=== PATIENT | female | born 1975 | race Asian ===

== ENCOUNTER 2017-11-15 23:34 | Emergency (ER) | payer OTHER ==
[~2017-11-15] VITALS: Ht 154.9 cm; Wt 59.5 kg
[2017-11-15 23:44] VITALS: BP 142/88
--- NOTE | 2017-11-16 01:09 | NUR ---
PATIENT AMBULATED TO ER BED 3
--- NOTE | 2017-11-16 01:10 | NUR ---
Pt presents to ED after having epigastric, left shoulder and nex pain x3 hrs at home. Pt described pressure pain and became anxious. She treats sypmtoms at home with proton pump inhibitors. Pt states upon arrival that pain is decreased to 3/10 and feels relieved being around staff. Pt denies SOB or Dyspnea, N/V. VSS. A&Ox4. ER MD aware. Continue to monitor.
[2017-11-16 03:15] VITALS: BP 131/71
--- NOTE | 2017-11-16 03:15 | NUR ---
Patient discharged with v/s stable. Written and verbal after care instructions given and explained. Patient verbalized understanding. Ambulatory with steady gait. All questions addressed prior to discharge. Advised to follow up with PMD.
== END 2017-11-16 03:15 | disposition home or self-care (01) ==
LOC: MED 23:34
DX: F41.9 Anxiety disorder, unspecified (principal); K21.9 Gastro-esophageal reflux disease without esophagitis; Z88.0 Allergy status to penicillin; Z88.2 Allergy status to sulfonamides; Z88.5 Allergy status to narcotic agent; Z88.8 Allergy status to other drugs, medicaments and biological substances
CPT/HCPCS: 99283

== ENCOUNTER 2018-04-19 09:15 | Emergency (ER) | payer OTHER ==
[~2018-04-19] VITALS: Ht 154.9 cm; Wt 54.4 kg
[2018-04-19 09:25] VITALS: BP 134/96
[2018-04-19] MEDS ORDERED: ACETAMINOPHEN EXTRA STRENGTH 500 MG TAB PO ONE (09:35)
[2018-04-19 10:29] VITALS: BP 134/96
== END 2018-04-19 10:30 | disposition home or self-care (01) ==
LOC: MED 09:15
DX: F41.9 Anxiety disorder, unspecified (principal); Z88.0 Allergy status to penicillin; Z88.6 Allergy status to analgesic agent; Z88.8 Allergy status to other drugs, medicaments and biological substances; Z79.2 Long term (current) use of antibiotics; Z79.899 Other long term (current) drug therapy
CPT/HCPCS: 99284

== ENCOUNTER 2018-09-17 13:45 | Emergency (ER) | payer OTHER ==
[~2018-09-17] VITALS: Ht 154.9 cm; Wt 61.2 kg
[2018-09-17 13:50] VITALS: BP 142/87
--- NOTE | 2018-09-17 14:06 | NUR ---
PATIENT AMB. TO BED #10
--- NOTE | 2018-09-17 14:14 | NUR ---
PATIENT PRESENTS TO ED WITH C/O HACKING PRODUCTIVE COUGH >1 WK FATIGUE, INSOMNIA, RESTLESS FULL CLEAR SPEECH WITH NO ACCESSORY MUSCLE USE NOTED .. DENIES N/V/D; SKIN IS PINK/WARM/DRY; AAOX4 WITH EVEN AND STEADY GAIT; LUNGS CLEAR BL; HR EVEN AND REGULAR; PATIENT STATES PAIN OF 0/10 AT THIS TIME; VSS; PATIENT POSITIONED FOR COMFORT; HOB ELEVATED; BEDRAILS UP X2; BED DOWN. ER MD MADE AWARE OF PT STATUS.
[2018-09-17] MEDS ORDERED: ALBUTEROL 0.083% 2.5 MG/3 ML NEBU INH ONE (14:15)
--- NOTE | 2018-09-17 14:24 | NUR ---
RT AT BEDSIDE
[2018-09-17 14:54] VITALS: BP 142/87
--- NOTE | 2018-09-17 14:55 | NUR ---
Patient discharged with v/s stable. Written and verbal after care instructions given and explained. Patient alert, oriented and verbalized understanding of instructions. Ambulatory with steady gait. All questions addressed prior to discharge. ID band removed. Patient advised to follow up with PMD. Rx of levaquin given. Patient educated on indication of medication including possible reaction and side effects. Opportunity to ask questions provided and answered.
== END 2018-09-17 14:55 | disposition home or self-care (01) ==
LOC: MED 13:45
DX: J32.9 Chronic sinusitis, unspecified (principal); J45.909 Unspecified asthma, uncomplicated; K21.9 Gastro-esophageal reflux disease without esophagitis; Z90.49 Acquired absence of other specified parts of digestive tract; Z88.0 Allergy status to penicillin; Z88.6 Allergy status to analgesic agent; Z88.1 Allergy status to other antibiotic agents; Z88.8 Allergy status to other drugs, medicaments and biological substances
CPT/HCPCS: 81002; 81025; 94640; 99283; J7613

== ENCOUNTER 2018-10-27 11:03 | Emergency (ER) | payer OTHER ==
[~2018-10-27] VITALS: Ht 154.9 cm; Wt 56.7 kg
[2018-10-27 11:12] VITALS: BP 140/88
--- NOTE | 2018-10-27 11:18 | NUR ---
DR TATE AT BEDSIDE.
--- NOTE | 2018-10-27 11:20 | NUR ---
PT. BIB SELF WITH C/O CONGESTION X 2 DAYS. PT ALSO STATES SHE IS HAVING SOME ACID REFLEX EARLIER TODAY, BURNING SENSATION. PT. STATES " I THINK ITS ANXIETY TOO I DONT KNOW". DENIES ANY PAIN, DENIES ANY SOB, DENIES ANY FEVER OR CHILLS. RR EVEN AND UNLABORED. PT. ABLE TO SPEAK IN FULL AND COMPLETE SENTENCES. LS: CLEAR BILAT. WILL CONTINUE TO MONITOR. SAFETY PRECAUTIONS IN PLACE.ER MADE AWARE.
[2018-10-27] MEDS ORDERED: ALUMINUM HYD/MAG/SIMETHICONE 30 ML UDC PO ONE (11:30)
[2018-10-27 12:40] VITALS: BP 138/82
--- NOTE | 2018-10-27 12:40 | NUR ---
Patient discharged with v/s stable. Written and verbal after care instructions given and explained. Patient alert, oriented and verbalized understanding of instructions. Ambulatory with steady gait. All questions addressed prior to discharge. ID band removed. Patient advised to follow up with PMD. Rx of MAALOX, ALBUTEROL given. Patient educated on indication of medication including possible reaction and side effects. Opportunity to ask questions provided and answered.
== END 2018-10-27 12:40 | disposition home or self-care (01) ==
LOC: MED 11:03
DX: K21.9 Gastro-esophageal reflux disease without esophagitis (principal); F41.9 Anxiety disorder, unspecified; J45.909 Unspecified asthma, uncomplicated; Z88.0 Allergy status to penicillin; Z88.2 Allergy status to sulfonamides; Z88.3 Allergy status to other anti-infective agents; Z88.6 Allergy status to analgesic agent; Z88.8 Allergy status to other drugs, medicaments and biological substances
CPT/HCPCS: 99283

== ENCOUNTER 2019-03-07 17:14 | Emergency (ER) | payer OTHER ==
[~2019-03-07] VITALS: Ht 154.9 cm; Wt 63.1 kg
[2019-03-07 17:32] VITALS: BP 127/87
--- NOTE | 2019-03-07 17:57 | NUR ---
PT TO ER BED 7
[2019-03-07] MEDS ORDERED: LEVOFLOXACIN 500 MG TAB PO ONE (18:25)
[2019-03-07] MEDS ORDERED: predniSONE 20 MG TAB PO ONE (18:25)
[2019-03-07] MEDS ORDERED: MECLIZINE 25 MG TAB PO ONE (18:25)
[2019-03-07] MEDS ORDERED: ALBUTEROL SULFATE/IPRATROPIU 3 ML SOL IH ONE (18:25)
[2019-03-07] MEDS ORDERED: FAMOTIDINE 20 MG TAB PO ONE (18:25)
--- NOTE | 2019-03-07 18:35 | NUR ---
pt bib self c/o burning urination x3 days at 02/20. pt also states that she is out of symbicort 160 for emergency asthma atacks, pantoprazole for gerd and laratadine for allergic rx. pt also has epipen that are older than 1 year. vss. er md to see pt medhx:asthma, gerd, anxiety rx:epipen, pantoprazole, laratadine, and symbicort
--- NOTE | 2019-03-07 18:38 | NUR ---
PT REFUSED HHNTX, STATED SHE DID NOT FEEL IF IT WAS NECESSARY
[2019-03-07 19:01] LABS: APPEARANCE,URINE SL CLOUDY (CLEAR); BILIRUBIN,URINE NEGATIVE (NEGATIVE); BLOOD, URINE TRACE-I (NEGATIVE); COLOR,URINE YELLOW (YELLOW); LEUKOCYTE ESTERASE ,URINE 3+ (NEGATIVE); NITRITE, URINE NEGATIVE (NEGATIVE); UGLUCOSE NEGATIVE (NEGATIVE)
[2019-03-07 19:06] LABS: RBC,URINE 0-5 /HPF (0-5); WBC,URINE TOO MANY TO COUNT /HPF (0-5)
[2019-03-07 19:07] LABS: BARBITURATE, URINE NEG. ng/ml (NEG <=200); BENZODIAZEPINE, URINE NEG. ng/mL (NEG <=200); CANNABINOID, URINE NEG. ng/mL (NEG <=50); COCAINE, URINE NEG. ng/mL (NEG <=300); OPIATE, URINE NEG. ng/mL (NEG <=2000); PHENCYCLIDINE SCREEN,URINE NEG. ng/mL (NEG <=25)
[2019-03-07 19:30] VITALS: BP 126/84
--- NOTE | 2019-03-07 19:30 | NUR ---
Patient discharged with v/s stable. Written and verbal after care instructions given and explained. Patient alert, oriented and verbalized understanding of instructions. Ambulatory with steady gait. All questions addressed prior to discharge. ID band removed. Patient advised to follow up with PMD. Rx of LEVAQUIN, CYMBICORT, ATARAX, PROTONIX, AND ALBUTEROL given. Patient educated on indication of medication including possible reaction and side effects. Opportunity to ask questions provided and answered.
== END 2019-03-07 19:30 | disposition home or self-care (01) ==
LOC: MED 17:14
DX: N30.00 Acute cystitis without hematuria (principal); K21.9 Gastro-esophageal reflux disease without esophagitis; J45.909 Unspecified asthma, uncomplicated; F41.9 Anxiety disorder, unspecified; Z88.0 Allergy status to penicillin; Z88.6 Allergy status to analgesic agent; Z88.1 Allergy status to other antibiotic agents; Z88.8 Allergy status to other drugs, medicaments and biological substances
CPT/HCPCS: 80305; 81001; 81025; 87086; 99283; J7512; 87186; J7620; J8597

== ENCOUNTER 2019-06-24 06:51 | Emergency (ER) | payer OTHER ==
[~2019-06-24] VITALS: Ht 157.5 cm; Wt 61.2 kg
[2019-06-24 06:58] VITALS: BP 145/88
--- NOTE | 2019-06-24 07:22 | NUR ---
Pt. bib self. C/O anxiety for two days, pt reports anxiety, sob, GERD reports several allergies to medications. NO facial swelling, no hives, no preuritus, voice is clear, no excess saliva, airway patent, RR even non-labored, lungs sounds clear thoughout, no signs of distress noted. No hypotension, BP at 145/88. Pt. states inhalor not working. VSS. ER MD at bedside evaluating pt. PMH, anxiety , GERD, asthma.
[2019-06-24] MEDS ORDERED: LORazepam 1 MG TAB PO ONE (07:35)
--- NOTE | 2019-06-24 07:52 | NUR ---
PT STATED SHE IS NERVOUS ABOUT TAKING ATIVAN BECAUSE OF MULTIPLE DRUG ALLERGIES, PT PLACED ON 02 AND CADIAC MONITOR, VSS AT THIS TIME.
--- NOTE | 2019-06-24 09:00 | NUR ---
PT STATES SHE FEELS DIZZY AND DROWSY FROM MEDICATION, VSS, PT TOLD SHE COULD WAIT IN [facility] UNTIL SHE IS ABLE TO GET A RIDE.
[2019-06-24 10:20] VITALS: BP 118/72
--- NOTE | 2019-06-24 10:20 | NUR ---
Patient discharged with v/s stable. Written and verbal after care instructions given and explained. Patient alert, oriented and verbalized understanding of instructions. Ambulatory with steady gait. All questions addressed prior to discharge. ID band removed. Patient advised to follow up with PMD. Rx of PANTOPRAZOLE, ZYRTEC, AND ALBUTEROL given. Patient educated on indication of medication including possible reaction and side effects. Opportunity to ask questions provided and answered.
--- NOTE | 2019-06-24 10:20 | NUR ---
PT GOING TO WAIT IN LOBBY FOR RIDE
== END 2019-06-24 10:20 | disposition home or self-care (01) ==
LOC: MED 06:51
DX: F41.9 Anxiety disorder, unspecified (principal); F41.0 Panic disorder [episodic paroxysmal anxiety]; Z76.0 Encounter for issue of repeat prescription; J45.909 Unspecified asthma, uncomplicated; K21.9 Gastro-esophageal reflux disease without esophagitis; Z79.2 Long term (current) use of antibiotics; Z79.899 Other long term (current) drug therapy; Z79.1 Long term (current) use of non-steroidal anti-inflammatories (NSAID); Z88.0 Allergy status to penicillin; Z88.6 Allergy status to analgesic agent; Z88.8 Allergy status to other drugs, medicaments and biological substances
CPT/HCPCS: 99284

== ENCOUNTER 2019-07-01 06:51 | Emergency (ER) | payer OTHER ==
[~2019-07-01] VITALS: Ht 154.9 cm; Wt 63.5 kg
[2019-07-01 06:59] VITALS: BP 140/84
[2019-07-01 07:35] VITALS: BP 128/74
== END 2019-07-01 07:34 | disposition home or self-care (01) ==
LOC: MED 06:51
DX: F41.9 Anxiety disorder, unspecified (principal); J45.909 Unspecified asthma, uncomplicated; K21.9 Gastro-esophageal reflux disease without esophagitis; Z88.0 Allergy status to penicillin; Z88.6 Allergy status to analgesic agent; Z88.2 Allergy status to sulfonamides; Z88.8 Allergy status to other drugs, medicaments and biological substances; Z88.1 Allergy status to other antibiotic agents
CPT/HCPCS: 93005; 99283

== ENCOUNTER 2019-07-17 19:28 | Emergency (ER) | payer OTHER ==
[~2019-07-17] VITALS: Ht 154.9 cm; Wt 59.0 kg
[2019-07-17 19:40] VITALS: BP 129/85
--- NOTE | 2019-07-17 19:43 | NUR ---
TO LOBBY A/W BED AMBULATORY
--- NOTE | 2019-07-17 19:45 | NUR ---
PT ARRVIED TO ED C/O DIZZINESS, LIGHTHEADEDNESS X 1830 TODAY AND COUGH X 3 DAYS. DRY COUGH. LUNG SOUNDS CLEAR ALL THROUGHTOUT. VSS. PT RATES PAIN 5/10. 2MM BRISK PERRLA. PT STATES SHE ALMOST FAINTED. DENIES ANY INJURY OR TRUAMA. PMH: ASTHMA, GERD,ANXIETY.
[2019-07-17 21:25] VITALS: BP 129/85
== END 2019-07-17 21:25 | disposition home or self-care (01) ==
LOC: MED 19:28
DX: R42 Dizziness and giddiness (principal); F43.9 Reaction to severe stress, unspecified; J45.909 Unspecified asthma, uncomplicated; K21.9 Gastro-esophageal reflux disease without esophagitis; Z79.2 Long term (current) use of antibiotics; Z79.899 Other long term (current) drug therapy; Z79.1 Long term (current) use of non-steroidal anti-inflammatories (NSAID); Z88.0 Allergy status to penicillin; Z88.6 Allergy status to analgesic agent; Z88.1 Allergy status to other antibiotic agents; F41.9 Anxiety disorder, unspecified; I10 Essential (primary) hypertension
CPT/HCPCS: 99281

== ENCOUNTER 2019-09-14 19:10 | Emergency (ER) | payer OTHER ==
[~2019-09-14] VITALS: Ht 154.9 cm; Wt 61.2 kg
[2019-09-14 19:18] VITALS: BP 143/99
--- NOTE | 2019-09-14 19:37 | NUR ---
AMBULATED TO CHAIR D
--- NOTE | 2019-09-14 19:40 | NUR ---
PATIENT ASSESSMENT COMPLETED AT THIS TIME FOR MED REFILL. PATIENT SITTING UP IN CHAIR.
[2019-09-14 20:18] VITALS: BP 143/99
--- NOTE | 2019-09-14 20:18 | NUR ---
Note isabel in EDM - 09/14/19 at 2322 by MONICA Patient discharged with v/s stable. Written and verbal after care instructions given and explained. Patient alert, oriented and verbalized understanding of instructions. Ambulatory with steady gait. All questions addressed prior to discharge. ID band removed. Patient advised to follow up with PMD. Rx of PANTOPRAZOLE, LORATADINE, SYMBICORT, VENTOLIN given. Patient educated on indication of medication including possible reaction and side effects. Opportunity to ask questions provided and answered.
== END 2019-09-14 20:18 | disposition home or self-care (01) ==
LOC: MED 19:10
DX: J30.2 Other seasonal allergic rhinitis (principal); L29.9 Pruritus, unspecified; K21.9 Gastro-esophageal reflux disease without esophagitis; J45.909 Unspecified asthma, uncomplicated; Z76.0 Encounter for issue of repeat prescription; Z88.0 Allergy status to penicillin; Z88.6 Allergy status to analgesic agent; Z88.8 Allergy status to other drugs, medicaments and biological substances
CPT/HCPCS: 99283

== ENCOUNTER 2019-09-22 14:55 | Emergency (ER) | payer OTHER ==
[~2019-09-22] VITALS: Ht 154.9 cm; Wt 61.2 kg
--- NOTE | 2019-09-22 15:00 | NUR ---
PT C/O SOB SECONDARY TO COUGHING NO FEVER, DIAGNOSE CASE OF ASTHMA WITH MEDS.SCE, CBS, AFEBRILE NICRD . AMBULATORY WITH STEADY GAIT. FEELING OF N/V. PMHX BA
[2019-09-22 15:10] VITALS: BP 128/89
--- NOTE | 2019-09-22 15:19 | NUR ---
NIYA WOOD AT BEDSIDE EVALUATING PT.
--- NOTE | 2019-09-22 15:35 | NUR ---
XRAY AT BEDSIDE.
[2019-09-22 16:53] VITALS: BP 128/89
--- NOTE | 2019-09-22 16:55 | NUR ---
Patient discharged with v/s stable. Written and verbal after care instructions given and explained regarding cough. Patient alert, oriented and verbalized understanding of instructions. Ambulatory with steady gait. All questions addressed prior to discharge. ID band removed. Patient advised to follow up with PMD. Rx of ventolin and albuterol given. Patient educated on indication of medication including possible reaction and side effects. Opportunity to ask questions provided and answered.
== END 2019-09-22 16:55 | disposition home or self-care (01) ==
LOC: MED 14:55
DX: K21.9 Gastro-esophageal reflux disease without esophagitis (principal); R05 Cough; F41.9 Anxiety disorder, unspecified; J45.909 Unspecified asthma, uncomplicated; Z88.0 Allergy status to penicillin; Z88.6 Allergy status to analgesic agent; Z88.2 Allergy status to sulfonamides; Z88.8 Allergy status to other drugs, medicaments and biological substances; Z88.1 Allergy status to other antibiotic agents
CPT/HCPCS: 71045; 99283

== ENCOUNTER 2020-07-30 09:46 | Emergency (ER) | payer OTHER ==
[~2020-07-30] VITALS: Ht 162.6 cm; Wt 65.3 kg
[2020-07-30 09:51] VITALS: BP 145/90
--- NOTE | 2020-07-30 09:55 | NUR ---
Patient ambulated to bed 6. RN evaluating patient at bedside.
--- NOTE | 2020-07-30 10:00 | NUR ---
Pt states she felt like she was going to "pass out" yesterday and then checked her blood pressure and it was out of her normal 120/80 and is concerned "there is something wrong". Denies headache. BP 140/82, HR75 AT THIS TIME. PT ALSO REPORTS SHE HAS BEEN HAVING INTERMITTENT NON-RADIATING PERCARDIAL CP WITH STABBING SENSATION FOR THE PAST 3 DAYS. DENIES DIZZINESS, N/V/D, NUMBNESS SENSATION ON NEAL UPPER EXTREMITIES. SHE ALSO STATES SHE HAS BEEN FEELING SO STRESSFUL RECENTLY. PMH: GERD, ASTHMA
--- NOTE | 2020-07-30 10:24 | NUR ---
Dr. Willoughby is evaluating the patient at bedside.
[2020-07-30 10:42] LABS: BASOPHILS # (AUTO) 0.1 K/uL (0.00-0.22); BASOPHILS % (AUTO) 0.7 % (0.0-2.0); EOSINOPHILS % (AUTO) 0.6 % (0.0-4.0); HEMATOCRIT 39.5 % (36-48); HEMOGLOBIN 13.1 g/dL (12.0-16.0); LYMPHOCYTES # (AUTO) 1.8 K/uL (2.5-16.5); MEAN CORPUSCULAR HEMOGLOBIN 29 pg (27-31); MEAN CORPUSCULAR HGB CONC 33 g/dL (33-37); MEAN CORPUSCULAR VOLUME 88.1 fL (80-94); MONOCYTES # (AUTO) 0.3 K/uL (0.8-1.0); MONOCYTES % (AUTO) 4.7 % (1.7-9.3); NEUTROPHILS # (AUTO) 5.2 K/uL (1.8-7.7); PLATELET COUNT (AUTO) 260 K/uL (140-450); RED BLOOD CELL COUNT(AUTO) 4.48 MIL/uL (4.20-5.40); RED CELL DISTRIBUTION WIDTH 14.2 % (11.6-13.7); WHITE BLOOD COUNT (AUTO) 7.4 K/uL (4.8-10.8)
[2020-07-30 10:58] LABS: ALBUMIN 3.8 g/dL (3.4-5.0); CARBON DIOXIDE 24.8 mmol/L (21-32); CREATININE 0.7 mg/dL (0.6-1.3); POTASSIUM 3.8 mmol/L (3.5-5.1); TOTAL BILIRUBIN 0.5 mg/dL (0.0-1.0)
[2020-07-30 11:43] VITALS: BP 141/81
== END 2020-07-30 11:43 | disposition home or self-care (01) ==
LOC: MED 09:46
DX: R07.2 Precordial pain (principal); F41.9 Anxiety disorder, unspecified; Z88.0 Allergy status to penicillin; Z88.5 Allergy status to narcotic agent; Z88.8 Allergy status to other drugs, medicaments and biological substances
CPT/HCPCS: 36415; 71045; 80053; 83690; 83880; 84484; 85025; 93005; 99285

== ENCOUNTER 2020-12-31 19:46 | Emergency (ER) | payer OTHER ==
[~2020-12-31] VITALS: Ht 154.9 cm; Wt 63.5 kg
[2020-12-31 19:48] VITALS: BP 145/96
--- NOTE | 2020-12-31 19:48 | NUR ---
TO BED AMBULATORY
--- NOTE | 2020-12-31 20:39 | NUR ---
ERMD AT BEDSIDE FOR MEDICAL EVALUATION.
--- NOTE | 2020-12-31 20:40 | NUR ---
pt assessment completed by CAM , no nursing interventions needed at this time.
[2020-12-31] MEDS ORDERED: ATA25 PO (21:02)
[2020-12-31] MEDS ORDERED: EPIN1KIT32 IM (21:18)
[2020-12-31 21:25] VITALS: BP 145/96
--- NOTE | 2020-12-31 21:25 | NUR ---
Patient discharged with v/s stable. Written and verbal after care instructions given and explained. Patient alert, oriented and verbalized understanding of instructions. Ambulatory with steady gait. All questions addressed prior to discharge. ID band removed. Patient advised to follow up with PMD. Rx of atarax & epi pen given. Patient educated on indication of medication including possible reaction and side effects. Opportunity to ask questions provided and answered.
== END 2020-12-31 21:25 | disposition home or self-care (01) ==
LOC: MED 19:46
DX: I10 Essential (primary) hypertension (principal); F41.9 Anxiety disorder, unspecified; G47.00 Insomnia, unspecified; J45.909 Unspecified asthma, uncomplicated; K21.9 Gastro-esophageal reflux disease without esophagitis; Z79.899 Other long term (current) drug therapy; Z88.0 Allergy status to penicillin; Z88.1 Allergy status to other antibiotic agents; Z88.2 Allergy status to sulfonamides; Z88.8 Allergy status to other drugs, medicaments and biological substances; Z88.6 Allergy status to analgesic agent
CPT/HCPCS: 99283

== ENCOUNTER 2021-11-07 13:37 | Emergency (ER) | payer OTHER ==
[~2021-11-07] VITALS: Ht 151.1 cm; Wt 68.5 kg
[~2021-11-07 13:37] MED LIST: ATA25 PO; EPIN1KIT32 IM
[2021-11-07 13:46] VITALS: BP 166/94
--- NOTE | 2021-11-07 14:25 | NUR ---
46 y/o female c/o feeling anxiety and stress due to work. Pt denies n/v/d, a&o x 4, steady gait, even and unlabored respirations at this time. Pt states 0/10 pain. pmedhx: generalized anxiety disorder allergies: penicillins, aspirin, diclofenac
[2021-11-07] MEDS ORDERED: HYDR25CA1 PO (14:27)
[2021-11-07 14:40] VITALS: BP 166/94
--- NOTE | 2021-11-07 14:40 | NUR ---
Patient discharged with v/s stable. Written and verbal after care instructions about generalized anxiety disorder given and explained. Patient alert, oriented and verbalized understanding of instructions. Ambulatory with steady gait. All questions addressed prior to discharge. ID band removed. Patient advised to follow up with PMD. Rx of vistaril given. Patient educated on indication of medication including possible reaction and side effects. Opportunity to ask questions provided and answered.
== END 2021-11-07 14:40 | disposition home or self-care (01) ==
LOC: MED 13:37
DX: F41.9 Anxiety disorder, unspecified (principal); R20.0 Anesthesia of skin; R20.2 Paresthesia of skin; J45.909 Unspecified asthma, uncomplicated; K21.9 Gastro-esophageal reflux disease without esophagitis; Z79.899 Other long term (current) drug therapy; Z88.0 Allergy status to penicillin; Z88.6 Allergy status to analgesic agent; Z88.8 Allergy status to other drugs, medicaments and biological substances; Z88.1 Allergy status to other antibiotic agents
CPT/HCPCS: 99283

== ENCOUNTER 2022-01-20 07:05 | Emergency (ER) | payer OTHER ==
[~2022-01-20] VITALS: Ht 154.9 cm; Wt 69.5 kg
[~2022-01-20 07:05] MED LIST changes: +HYDR25CA1 PO
[2022-01-20 07:13] VITALS: BP 127/93
--- NOTE | 2022-01-20 07:34 | NUR ---
TO ER BED 4
--- NOTE | 2022-01-20 07:35 | NUR ---
46 y/o female presents with localized chest pain pointing to left size, not radiating. patient describes the pain to be consistant with shortness of breath
--- NOTE | 2022-01-20 08:21 | NUR ---
XRAY AT BEDSIDE
[2022-01-20 08:23] LABS: BASOPHILS % (AUTO) 0.4 % (0.0-2.0); EOSINOPHILS # (AUTO) 0.1 K/uL (0-0.4); EOSINOPHILS % (AUTO) 1.2 % (0.0-4.0); HEMATOCRIT 39.5 % (36-48); HEMOGLOBIN 13.1 g/dL (12.0-16.0); LYMPHOCYTES # (AUTO) 1.6 K/uL (2.5-16.5); LYMPHOCYTES % (AUTO) 20.2 % (20.5-51.1); MEAN CORPUSCULAR HEMOGLOBIN 29 pg (27-31); MEAN CORPUSCULAR HGB CONC 33 g/dL (33-37); MEAN CORPUSCULAR VOLUME 88.5 fL (80-94); MONOCYTES # (AUTO) 0.5 K/uL (0.8-1.0); MONOCYTES % (AUTO) 6.3 % (1.7-9.3); NEUTROPHILS # (AUTO) 5.8 K/uL (1.8-7.7); NEUTROPHILS % (AUTO) 71.9 % (42.2-75.2); PLATELET COUNT (AUTO) 273 K/uL (140-450); RED BLOOD CELL COUNT(AUTO) 4.46 MIL/uL (4.20-5.40); RED CELL DISTRIBUTION WIDTH 14.2 % (11.6-13.7); WHITE BLOOD COUNT (AUTO) 8.1 K/uL (4.8-10.8)
[2022-01-20 08:36] LABS: ALBUMIN 3.4 g/dL (3.4-5.0); ANION GAP 11.4 (8-16); CARBON DIOXIDE 25.9 mmol/L (21-32); CREATININE 0.8 mg/dL (0.6-1.3); POTASSIUM 4.3 mmol/L (3.5-5.1); TOTAL BILIRUBIN 0.4 mg/dL (0.0-1.0)
[2022-01-20 10:48] VITALS: BP 127/93
== END 2022-01-20 10:48 | disposition home or self-care (01) ==
LOC: MED 07:05
DX: R07.9 Chest pain, unspecified (principal); F41.9 Anxiety disorder, unspecified; K21.9 Gastro-esophageal reflux disease without esophagitis; J45.909 Unspecified asthma, uncomplicated; Z88.0 Allergy status to penicillin; Z88.6 Allergy status to analgesic agent; Z88.8 Allergy status to other drugs, medicaments and biological substances; Z88.1 Allergy status to other antibiotic agents; Z79.899 Other long term (current) drug therapy; Z90.49 Acquired absence of other specified parts of digestive tract
CPT/HCPCS: 36415; 71045; 80053; 83880; 84484; 85025; 93005; 99285; Q0092

== ENCOUNTER 2022-03-17 14:31 | Emergency (ER) | payer OTHER ==
[~2022-03-17] VITALS: Ht 152.4 cm; Wt 68.2 kg
[2022-03-17 14:43] VITALS: BP 133/88
[2022-03-17] MEDS ORDERED: ACETAMINOPHEN 325 MG TAB PO ONE (14:55)
--- NOTE | 2022-03-17 18:30 | NUR ---
ATTEMPTED TO MEDICATE PT. PT IS ALLERGIC. NO MEDS PER NIYA MURPHY
--- NOTE | 2022-03-17 18:34 | NUR ---
PT UP FOR D/C BY NIYA MURPHY. NOT FOUND IN LOBBY.OUTSIDE.
--- NOTE | 2022-03-17 18:54 | NUR ---
PT RETURNED FOR PAPERS. PT NOTIFIED COVID +. EDUCATED ON COOLING MEASURES. DC PAPERS GIVEN. PT VERBALIZED UNDERSTANDING. DR GROVER/NIYA MURPHY MADE AWARE OF VITALS, PT NEVER MEDICATED.
== END 2022-03-17 18:54 | disposition home or self-care (01) ==
LOC: MED 14:31
DX: U07.1 COVID-19 (principal); J02.9 Acute pharyngitis, unspecified; R50.9 Fever, unspecified; J45.909 Unspecified asthma, uncomplicated; K21.9 Gastro-esophageal reflux disease without esophagitis; Z88.0 Allergy status to penicillin; Z88.8 Allergy status to other drugs, medicaments and biological substances; Z88.6 Allergy status to analgesic agent; Z88.2 Allergy status to sulfonamides; Z79.899 Other long term (current) drug therapy
CPT/HCPCS: 99283

== ENCOUNTER 2022-06-01 05:05 | Emergency (ER) | payer OTHER ==
[~2022-06-01] VITALS: Ht 154.9 cm; Wt 67.8 kg
[2022-06-01 05:13] VITALS: BP 130/99
--- NOTE | 2022-06-01 05:15 | NUR ---
PT TAKEN TO BED 12
--- NOTE | 2022-06-01 05:27 | NUR ---
46 Y/O FEMALE BIB SELF C/O ANIXETY, DIFFCIULTY BREATHING, DRY MOUTH AND DIFFICULTY SWALLOWING. PT NOTED TO BE RESTLESS, DENIES TAKING ANY MEDICATION FOR ANXIETY, RX OF BENADRYL AND PANTOPRAZOLE BEFORE ARRIVAL. PT OFFERED WATER, SPEAKING IN FULL SENTENCES, SATTING AT 99% RA, BLS CLEAR. PT STATES THAT SHE'S BEEN "HAVING A REALLY STRESSFUL LIFE" PMH: ANXIETY, GERD, ASTHMA
--- NOTE | 2022-06-01 06:03 | NUR ---
DR CRUZ AT BEDSIDE FOR EVAL
[2022-06-01] MEDS: LORazepam 1 MG TAB PO ONE (06:51)
--- NOTE | 2022-06-01 06:51 | NUR ---
PT REFUSED MED, STATES THAT " HER GUEST SERVICES MANAGER TOLD ME NOT TO TAKE ANY ANXIETY MEDICATION BECAUSE IT CAN MAKE ME ANAPHYLACTIC", INQURED REGARDING OTHER MEDICATION PT IS WILLING TO TAKE FOR ANXIETY OR STRESS, STATES THAT "SHE'S STILL REALLY UNSURE" AND THAT SHE "DOESNT WANT TO TAKE ANYTHING THAT CAN MAKE HER FEEL SLEEPY OR AFFECT HER IN ANY WAY" ERMD MADE AWARE.
[2022-06-01] MEDS ORDERED: ATA25 PO (07:01)
[2022-06-01 07:30] VITALS: BP 130/99
--- NOTE | 2022-06-01 07:30 | NUR ---
Patient discharged with v/s stable. Written and verbal after care instructions ABOUT AUDREY given and explained. Patient alert, oriented and verbalized understanding of instructions. Ambulatory with steady gait. All questions addressed prior to discharge. ID band removed. Patient advised to follow up with PMD. Rx of ATARAX given. Patient educated on indication of medication including possible reaction and side effects. Opportunity to ask questions provided and answered.
== END 2022-06-01 07:30 | disposition home or self-care (01) ==
LOC: MED 05:05
DX: F41.9 Anxiety disorder, unspecified (principal); R14.0 Abdominal distension (gaseous); J45.909 Unspecified asthma, uncomplicated; K21.9 Gastro-esophageal reflux disease without esophagitis; Z88.0 Allergy status to penicillin; Z88.8 Allergy status to other drugs, medicaments and biological substances; Z88.1 Allergy status to other antibiotic agents; Z88.6 Allergy status to analgesic agent; Z90.49 Acquired absence of other specified parts of digestive tract; Z79.899 Other long term (current) drug therapy
CPT/HCPCS: 93005; 99283

== ENCOUNTER 2022-08-07 22:45 | Emergency (ER) | payer OTHER ==
[~2022-08-07] VITALS: Ht 154.9 cm; Wt 71.7 kg
[2022-08-07 22:49] VITALS: BP 148/87
--- NOTE | 2022-08-07 22:56 | NUR ---
TO LOBBY FOLLOWING TRIAGE
--- NOTE | 2022-08-08 01:40 | NUR ---
CALLED TO BE PLACED IN A BED. LWBS.
== END 2022-08-08 01:40 | disposition left against medical advice (07) ==
LOC: MED 22:45
DX: I10 Essential (primary) hypertension (principal); Z53.21 Procedure and treatment not carried out due to patient leaving prior to being seen by health care provider

== ENCOUNTER 2022-08-27 05:45 | Emergency (ER) | payer OTHER ==
[~2022-08-27] VITALS: Ht 152.4 cm; Wt 68.9 kg
[2022-08-27 05:50] VITALS: BP 140/80
--- NOTE | 2022-08-27 06:05 | NUR ---
PT TO BED 6
--- NOTE | 2022-08-27 06:13 | NUR ---
Patient being evaluated by physician at bedside.
[2022-08-27 06:32] VITALS: BP 140/80
== END 2022-08-27 06:34 | disposition home or self-care (01) ==
LOC: MED 05:45
DX: R03.0 Elevated blood-pressure reading, without diagnosis of hypertension (principal); F41.9 Anxiety disorder, unspecified; J45.909 Unspecified asthma, uncomplicated; K21.9 Gastro-esophageal reflux disease without esophagitis; Z79.899 Other long term (current) drug therapy; Z88.0 Allergy status to penicillin; Z88.1 Allergy status to other antibiotic agents; Z88.6 Allergy status to analgesic agent; Z88.8 Allergy status to other drugs, medicaments and biological substances
CPT/HCPCS: 99281

== ENCOUNTER 2023-02-05 12:49 | Emergency (ER) | payer OTHER ==
[~2023-02-05] VITALS: Ht 154.9 cm; Wt 68.9 kg
[2023-02-05 13:18] VITALS: BP 148/78
[2023-02-05 14:22] LABS: ANION GAP 12.1 (8-16); CREATININE 0.7 mg/dL (0.6-1.3); POTASSIUM 4.1 mmol/L (3.5-5.1)
[2023-02-05 15:39] VITALS: BP 141/91
--- NOTE | 2023-02-05 15:41 | NUR ---
FIRST CONTACT. CAM GAVE VERBAL ACI TO PT ALONG W/ PRINTED ACI. PT STATES SHE FEELS MUCH BETTER W/ NORMAL LAB AND EXPLAINATION BY CAM. PT AGREES W/ D/C PLAN. VSS. NAD.
--- NOTE | 2023-02-05 17:15 | NUR ---
The patient's care was reviewed and supervised by Agency 04 RN, RN.
== END 2023-02-05 15:39 | disposition home or self-care (01) ==
LOC: MED 12:49
DX: R03.0 Elevated blood-pressure reading, without diagnosis of hypertension (principal); R42 Dizziness and giddiness; J45.909 Unspecified asthma, uncomplicated; K21.9 Gastro-esophageal reflux disease without esophagitis; Z90.49 Acquired absence of other specified parts of digestive tract; Z79.899 Other long term (current) drug therapy; Z88.0 Allergy status to penicillin; Z88.6 Allergy status to analgesic agent; Z88.1 Allergy status to other antibiotic agents; Z88.8 Allergy status to other drugs, medicaments and biological substances
CPT/HCPCS: 36415; 80048; 99283

== ENCOUNTER 2023-03-19 10:39 | Emergency (ER) | payer OTHER ==
[~2023-03-19] VITALS: Ht 162.6 cm; Wt 77.6 kg
[~2023-03-19 10:39] MED LIST changes: +ALBU0.0912 INH; +FLONAS NS; +MECL-303 PO; +PRON INH; +[UNRECOGNIZED DRUG - CODE] PO
[2023-03-19 10:54] VITALS: BP 142/101; PULSE 74; RESP 18; TEMP 97; O2SAT 98
--- NOTE | 2023-03-19 11:01 | NUR ---
PT TO BED 8. AMBULATED TO ROOM.
--- NOTE | 2023-03-19 11:01 | NUR ---
Patient ambulated to bed 8.
--- NOTE | 2023-03-19 11:05 | NUR ---
PT GETTING UNDRESSED AND PUTTING ON GOWN.
--- NOTE | 2023-03-19 11:08 | NUR ---
MEDICAL STUDENT AT EVALUATING THE PT.
--- NOTE | 2023-03-19 11:36 | NUR ---
Dr. Lopez evaluating patient at bedside.
[2023-03-19] MEDS ORDERED: LIDOCAINE 5% 1 EA PATCH TP ONE (11:40)
--- NOTE | 2023-03-19 11:51 | NUR ---
Patient ambulated to restroom.
--- NOTE | 2023-03-19 12:03 | NUR ---
US TECH AT TO PERFORM US OF LOWER EXTREMITIES.
--- NOTE | 2023-03-19 12:22 | NUR ---
PT OFF UNIT TO RADIOLOGY.
--- NOTE | 2023-03-19 13:22 | NUR ---
Dr. Lopez evaluating patient at bedside.
[2023-03-19] MEDS ORDERED: LIDO15CR2 TP (13:28)
[2023-03-19] MEDS ORDERED: LIDO1ADH54 TP (13:28)
--- NOTE | 2023-03-19 14:20 | NUR ---
Patient's pain is decreasing with Lidocaine patch. Call light is within reach.
[2023-03-19 14:30] VITALS: BP 141/92; PULSE 71; RESP 18; TEMP 96.8; O2SAT 99
--- NOTE | 2023-03-19 14:30 | NUR ---
Patient discharged with v/s stable. Written and verbal after care instructions given. Patient alert, oriented and verbalized understanding of instructions. Ambulatory with steady gait. All questions addressed prior to discharge. ID band removed. Patient advised to follow up with PMD. Rx of Lidocaine given. Opportunity to ask questions provided and answered. COPY AND CD OF LAB AND ULTRASOUND GIVEN TO PATIENT.
--- NOTE | 2023-03-19 14:31 | NUR ---
The patient's care was reviewed and supervised by Barby Alvarado, RN, RN.
--- NOTE | 2023-03-19 16:07 | NUR ---
The patient's care was reviewed and supervised by GREGORY MENSAH RN.
== END 2023-03-19 14:30 | disposition home or self-care (01) ==
LOC: MED 10:39
DX: S83.91XA Sprain of unspecified site of right knee, initial encounter (principal); J45.909 Unspecified asthma, uncomplicated; K21.9 Gastro-esophageal reflux disease without esophagitis; I10 Essential (primary) hypertension; F41.9 Anxiety disorder, unspecified; F32.9 Major depressive disorder, single episode, unspecified; Z79.899 Other long term (current) drug therapy; Z88.0 Allergy status to penicillin; Z88.1 Allergy status to other antibiotic agents; Z88.8 Allergy status to other drugs, medicaments and biological substances; Z88.6 Allergy status to analgesic agent; X58.XXXA Exposure to other specified factors, initial encounter; Y93.89 Activity, other specified; Y92.89 Other specified places as the place of occurrence of the external cause; Y99.8 Other external cause status
CPT/HCPCS: 73562; 81025; 93971; 99284; Q0092

== ENCOUNTER 2023-05-21 07:05 | Emergency (ER) | payer OTHER ==
[~2023-05-21] VITALS: Ht 154.9 cm; Wt 68.5 kg
[~2023-05-21 07:05] MED LIST changes: +LIDO15CR2 TP; +LIDO1ADH54 TP
[2023-05-21 07:25] VITALS: BP 157/93; PULSE 83; RESP 20; TEMP 99; O2SAT 97
[2023-05-21] MEDS ORDERED: BUDE1AER IH (07:56)
[2023-05-21] MEDS ORDERED: ALBU0.0912 IH (07:56)
[2023-05-21] MEDS ORDERED: ATA10 PO (08:49)
[2023-05-21 09:20] VITALS: BP 159/95; PULSE 80; RESP 20; O2SAT 99
== END 2023-05-21 09:20 | disposition home or self-care (01) ==
LOC: MED 07:05
DX: F41.9 Anxiety disorder, unspecified (principal); R00.2 Palpitations; I10 Essential (primary) hypertension; R42 Dizziness and giddiness; K21.9 Gastro-esophageal reflux disease without esophagitis; J45.909 Unspecified asthma, uncomplicated; Z88.0 Allergy status to penicillin; Z88.1 Allergy status to other antibiotic agents; Z88.6 Allergy status to analgesic agent; Z88.8 Allergy status to other drugs, medicaments and biological substances; Z79.899 Other long term (current) drug therapy
CPT/HCPCS: 81002; 81025; 93005; 99283

== ENCOUNTER 2023-05-30 06:23 | Emergency (ER) | payer OTHER ==
[~2023-05-30] VITALS: Ht 154.9 cm; Wt 64.4 kg
[~2023-05-30 06:23] MED LIST changes: +ALBU0.0912 IH; +ATA10 PO; +BUDE1AER IH
[2023-05-30 06:55] VITALS: BP 142/84; PULSE 76; RESP 16; TEMP 97.4; O2SAT 100
[2023-05-30 07:32] VITALS: O2SAT 99
[2023-05-30 07:55] LABS: FLU A ANTIGEN negative (NEGATIVE); FLU B ANTIGEN negative (NEGATIVE)
[2023-05-30 08:10] VITALS: BP 150/88; PULSE 70; RESP 11; TEMP 98.1; O2SAT 99
== END 2023-05-30 08:10 | disposition home or self-care (01) ==
LOC: MED 06:23
DX: J06.9 Acute upper respiratory infection, unspecified (principal); R00.2 Palpitations; R06.02 Shortness of breath; J02.9 Acute pharyngitis, unspecified; F41.9 Anxiety disorder, unspecified; J45.909 Unspecified asthma, uncomplicated; I10 Essential (primary) hypertension; K21.9 Gastro-esophageal reflux disease without esophagitis; Z79.899 Other long term (current) drug therapy; Z88.0 Allergy status to penicillin; Z88.1 Allergy status to other antibiotic agents; Z88.6 Allergy status to analgesic agent; Z88.8 Allergy status to other drugs, medicaments and biological substances; Z20.822 Contact with and (suspected) exposure to COVID-19
CPT/HCPCS: 71045; 81002; 81025; 87426; 87804; 93005; 99285; Q0092

== ENCOUNTER 2023-09-14 16:32 | Emergency (ER) | payer OTHER ==
[~2023-09-14] VITALS: Ht 154.9 cm; Wt 67.1 kg
[2023-09-14 16:40] VITALS: BP 149/84; PULSE 95; RESP 20; TEMP 97.1; O2SAT 97
[2023-09-14] MEDS ORDERED: DICYCLOMINE HCL LIQUID 20 MG, ALUMINUM HYD/MAG/SIMETHICONE 30 ML, LIDOCAINE VISCOUS 2% ... PO ONE ×3 (17:05)
[2023-09-14] MEDS ORDERED: DICYCLOMINE HCL LIQUID 10 MG/5 ML UDC ONE (17:11)
[2023-09-14] MEDS ORDERED: ALUMINUM HYD/MAG/SIMETHICONE 30 ML UDC ONE (17:11)
[2023-09-14 17:18] LABS: BASOPHILS % (AUTO) 0.5 % (0.0-2.0); EOSINOPHILS # (AUTO) 0.1 K/uL (0-0.4); EOSINOPHILS % (AUTO) 1.6 % (0.0-4.0); HEMATOCRIT 38.8 % (36-48); LYMPHOCYTES # (AUTO) 1.8 K/uL (2.5-16.5); LYMPHOCYTES % (AUTO) 22.4 % (20.5-51.1); MEAN CORPUSCULAR HEMOGLOBIN 29 pg (27-31); MEAN CORPUSCULAR HGB CONC 34 g/dL (33-37); MEAN CORPUSCULAR VOLUME 86.2 fL (80-94); MONOCYTES # (AUTO) 0.4 K/uL (0.8-1.0); MONOCYTES % (AUTO) 5.4 % (1.7-9.3); NEUTROPHILS # (AUTO) 5.7 K/uL (1.8-7.7); NEUTROPHILS % (AUTO) 70.1 % (42.2-75.2); PLATELET COUNT (AUTO) 294 K/uL (140-450); RED CELL DISTRIBUTION WIDTH 14.3 % (11.6-13.7); WHITE BLOOD COUNT (AUTO) 8.2 K/uL (4.8-10.8)
[2023-09-14 17:42] LABS: ALANINE AMINOTRANSFERASE 22 U/L (12-78); ALBUMIN 3.3 g/dL (3.4-5.0); ALKALINE PHOSPHATASE 125 U/L (50-136); ANION GAP 11.6 (8-16); ASPARTATE AMINOTRANSFERASE 18 U/L (15-37); CALCIUM 8.4 mg/dL (8.5-10.1); CARBON DIOXIDE 30.3 mmol/L (21-32); CHLORIDE 104 mmol/L (98-107); CREATININE 0.9 mg/dL (0.6-1.3); GFR ARICAN-AMERICAN 86 mL/min (>90); GFR NON ARICAN-AMERICAN 71 mL/min (>90); GLUCOSE 151 mg/dL (74-106); LIPASE 63 U/L (16-77); POTASSIUM 3.9 mmol/L (3.5-5.1); SODIUM SERUM 142 mmol/L (136-145); TOTAL BILIRUBIN 0.2 mg/dL (0.0-1.0); TOTAL PROTEIN, SERUM 8.4 g/dL (6.4-8.2); UREA NITROGEN, BLOOD 11 mg/dL (7-18)
[2023-09-14] MEDS ORDERED: MAG354OR3 PO (18:08)
== END 2023-09-14 18:36 | disposition home or self-care (01) ==
LOC: MED 16:32
DX: F41.9 Anxiety disorder, unspecified (principal); R07.9 Chest pain, unspecified; J45.909 Unspecified asthma, uncomplicated; K21.9 Gastro-esophageal reflux disease without esophagitis; I10 Essential (primary) hypertension; Z79.899 Other long term (current) drug therapy; Z88.0 Allergy status to penicillin; Z88.6 Allergy status to analgesic agent; Z88.8 Allergy status to other drugs, medicaments and biological substances
CPT/HCPCS: 36415; 71045; 80053; 83690; 84484; 85025; 93005; 99285

== ENCOUNTER 2023-10-03 05:55 | Emergency (ER) | payer OTHER ==
[~2023-10-03] VITALS: Ht 154.9 cm; Wt 66.7 kg
[~2023-10-03 05:55] MED LIST changes: +MAG354OR3 PO
[2023-10-03 06:03] VITALS: BP 154/86; PULSE 71; RESP 18; TEMP 97.5; O2SAT 95
[2023-10-03] MEDS ORDERED: FAMOTIDINE 20 MG TAB PO ONE (06:40)
[2023-10-03] MEDS ORDERED: ALUMINUM HYD/MAG/SIMETHICONE 30 ML UDC PO ONE (06:40)
[2023-10-03 06:52] LABS: APPEARANCE,URINE CLEAR (CLEAR); BILIRUBIN,URINE NEGATIVE (NEGATIVE); BLOOD, URINE NEGATIVE (NEGATIVE); COLOR,URINE YELLOW (YELLOW); LEUKOCYTE ESTERASE ,URINE TRACE (NEGATIVE); NITRITE, URINE NEGATIVE (NEGATIVE); PH,URINE 6.5 (5.0-9.0); PROTEIN,URINE NEGATIVE (NEGATIVE); UGLUCOSE NEGATIVE (NEGATIVE); UROBILINOGEN,URINE 0.2 EU/dL (0.2 - 1)
[2023-10-03 07:09] LABS: BACTERIA,URINE FEW /HPF (None Seen); RBC,URINE 0-5 /HPF (0-5); SQUAMOUS EPITHELIAL CELL,UR 0-3 (FEW) /LPF (0-3 (FEW)); WBC,URINE 0-5 /HPF (0-5); YEAST,URINE Few /HPF (None Seen)
[2023-10-03 07:15] LABS: BASOPHILS # (AUTO) 0.1 K/uL (0.00-0.22); BASOPHILS % (AUTO) 0.9 % (0.0-2.0); EOSINOPHILS # (AUTO) 0.1 K/uL (0-0.4); EOSINOPHILS % (AUTO) 1.1 % (0.0-4.0); HEMATOCRIT 37.8 % (36-48); HEMOGLOBIN 12.5 g/dL (12.0-16.0); LYMPHOCYTES # (AUTO) 1.9 K/uL (2.5-16.5); MEAN CORPUSCULAR HEMOGLOBIN 29 pg (27-31); MEAN CORPUSCULAR HGB CONC 33 g/dL (33-37); MEAN CORPUSCULAR VOLUME 86.1 fL (80-94); MONOCYTES # (AUTO) 0.6 K/uL (0.8-1.0); MONOCYTES % (AUTO) 7.4 % (1.7-9.3); NEUTROPHILS # (AUTO) 5.3 K/uL (1.8-7.7); NEUTROPHILS % (AUTO) 66.6 % (42.2-75.2); PLATELET COUNT (AUTO) 257 K/uL (140-450); RED CELL DISTRIBUTION WIDTH 14.2 % (11.6-13.7)
[2023-10-03 07:26] LABS: ANION GAP 8.9 (8-16); CALCIUM 8.3 mg/dL (8.5-10.1); CARBON DIOXIDE 26.2 mmol/L (21-32); CREATININE 0.9 mg/dL (0.6-1.3); POTASSIUM 4.1 mmol/L (3.5-5.1)
[2023-10-03 07:33] LABS: ALANINE AMINOTRANSFERASE 15 U/L (12-78); ALBUMIN 3.2 g/dL (3.4-5.0); ALKALINE PHOSPHATASE 116 U/L (50-136); ASPARTATE AMINOTRANSFERASE 15 U/L (15-37); BILIRUBIN,DIRECT 0.2 mg/dL (0.0-0.3); LIPASE 45 U/L (16-77); MAGNESIUM 2.1 mg/dL (1.8-2.4); TOTAL BILIRUBIN 0.7 mg/dL (0.0-1.0); TOTAL PROTEIN, SERUM 8.2 g/dL (6.4-8.2)
[2023-10-03] MEDS ORDERED: MAG30ORA10 PO (08:36)
== END 2023-10-03 08:56 | disposition home or self-care (01) ==
LOC: MED 05:55
DX: M79.601 Pain in right arm (principal); R10.13 Epigastric pain; R42 Dizziness and giddiness; J45.909 Unspecified asthma, uncomplicated; K21.9 Gastro-esophageal reflux disease without esophagitis; I10 Essential (primary) hypertension; F41.9 Anxiety disorder, unspecified; Z90.49 Acquired absence of other specified parts of digestive tract; Z79.899 Other long term (current) drug therapy; Z88.0 Allergy status to penicillin; Z88.6 Allergy status to analgesic agent; Z88.8 Allergy status to other drugs, medicaments and biological substances; Z88.2 Allergy status to sulfonamides
CPT/HCPCS: 36415; 71045; 80048; 80076; 81001; 81025; 83690; 83735; 84484; 85025; 87086; 93005; 99285

== ENCOUNTER 2023-10-16 15:14 | Emergency (ER) | payer OTHER ==
[~2023-10-16] VITALS: Ht 154.9 cm; Wt 72.6 kg
[~2023-10-16 15:14] MED LIST changes: +MAG30ORA10 PO
[2023-10-16 15:21] VITALS: BP 154/87; PULSE 87; RESP 19; TEMP 98.2; O2SAT 98
[2023-10-16] MEDS ORDERED: ALUMINUM HYD/MAG/SIMETHICONE 30 ML UDC PO ONE (16:05)
[2023-10-16 17:19] LABS: BASOPHILS # (AUTO) 0.1 K/uL (0.00-0.22); BASOPHILS % (AUTO) 0.8 % (0.0-2.0); EOSINOPHILS # (AUTO) 0.1 K/uL (0-0.4); EOSINOPHILS % (AUTO) 1.1 % (0.0-4.0); HEMATOCRIT 36.8 % (36-48); HEMOGLOBIN 12.3 g/dL (12.0-16.0); LYMPHOCYTES # (AUTO) 1.7 K/uL (2.5-16.5); LYMPHOCYTES % (AUTO) 20.2 % (20.5-51.1); MEAN CORPUSCULAR HEMOGLOBIN 29 pg (27-31); MEAN CORPUSCULAR HGB CONC 34 g/dL (33-37); MEAN CORPUSCULAR VOLUME 85.7 fL (80-94); MONOCYTES # (AUTO) 0.6 K/uL (0.8-1.0); MONOCYTES % (AUTO) 6.7 % (1.7-9.3); NEUTROPHILS # (AUTO) 6.1 K/uL (1.8-7.7); NEUTROPHILS % (AUTO) 71.2 % (42.2-75.2); PLATELET COUNT (AUTO) 271 K/uL (140-450); RED BLOOD CELL COUNT(AUTO) 4.29 MIL/uL (4.20-5.40); RED CELL DISTRIBUTION WIDTH 14.4 % (11.6-13.7); WHITE BLOOD COUNT (AUTO) 8.6 K/uL (4.8-10.8)
[2023-10-16 17:35] LABS: ANION GAP 9.8 (8-16); CALCIUM 8.4 mg/dL (8.5-10.1); CARBON DIOXIDE 28.9 mmol/L (21-32); CREATININE 0.8 mg/dL (0.6-1.3); POTASSIUM 3.7 mmol/L (3.5-5.1)
[2023-10-16 18:11] VITALS: BP 135/76; PULSE 87; RESP 19; TEMP 98.2; O2SAT 98
== END 2023-10-16 18:12 | disposition home or self-care (01) ==
LOC: MED 15:14
DX: K21.9 Gastro-esophageal reflux disease without esophagitis (principal); J45.909 Unspecified asthma, uncomplicated; I10 Essential (primary) hypertension; Z88.8 Allergy status to other drugs, medicaments and biological substances; Z79.82 Long term (current) use of aspirin; Z88.0 Allergy status to penicillin; Z88.2 Allergy status to sulfonamides
CPT/HCPCS: 36415; 80048; 84484; 85025; 93005; 99284

== ENCOUNTER 2024-02-23 19:24 | Emergency (ER) | payer OTHER ==
[~2024-02-23] VITALS: Ht 154.9 cm; Wt 70.3 kg
[2024-02-23 19:53] VITALS: BP 176/99; PULSE 88; RESP 18; TEMP 97.7; O2SAT 98
[2024-02-23 20:59] LABS: BASOPHILS % (AUTO) 0.7 % (0.0-2.0); EOSINOPHILS # (AUTO) 0.1 K/uL (0-0.4); HEMOGLOBIN 12.4 g/dL (12.0-16.0); LYMPHOCYTES # (AUTO) 1.7 K/uL (2.5-16.5); LYMPHOCYTES % (AUTO) 24.7 % (20.5-51.1); MEAN CORPUSCULAR HEMOGLOBIN 28 pg (27-31); MEAN CORPUSCULAR HGB CONC 33 g/dL (33-37); MEAN CORPUSCULAR VOLUME 84.6 fL (80-94); MONOCYTES # (AUTO) 0.6 K/uL (0.8-1.0); MONOCYTES % (AUTO) 9.2 % (1.7-9.3); NEUTROPHILS # (AUTO) 4.3 K/uL (1.8-7.7); NEUTROPHILS % (AUTO) 63.4 % (42.2-75.2); PLATELET COUNT (AUTO) 269 K/uL (140-450); RED BLOOD CELL COUNT(AUTO) 4.49 MIL/uL (4.20-5.40); RED CELL DISTRIBUTION WIDTH 15.8 % (11.6-13.7); WHITE BLOOD COUNT (AUTO) 6.8 K/uL (4.8-10.8)
[2024-02-23 21:13] LABS: ANION GAP 8.5 (8-16); CALCIUM 9.1 mg/dL (8.5-10.1); CARBON DIOXIDE 30.5 mmol/L (21-32); CREATININE 0.8 mg/dL (0.6-1.3)
[2024-02-23 21:17] LABS: INR 0.92 (0.8-1.2); PARTIAL THROMBOPLASTIN TIME 28.4 secs (22-35.6); PROTHROMBIN TIME 9.7 secs (10.8-13.4)
[2024-02-23] MEDS ORDERED: ALBU0.0912 INH (21:57)
[2024-02-23] MEDS ORDERED: PANT40EC PO (21:57)
[2024-02-23] MEDS ORDERED: BUDE1AER IH (21:57)
[2024-02-23 22:20] VITALS: BP 176/99; PULSE 88; RESP 18; TEMP 97.7; O2SAT 98
== END 2024-02-23 22:20 | disposition home or self-care (01) ==
LOC: MED 19:24
DX: R07.9 Chest pain, unspecified (principal); J45.909 Unspecified asthma, uncomplicated; I10 Essential (primary) hypertension; K21.9 Gastro-esophageal reflux disease without esophagitis; Z88.0 Allergy status to penicillin; Z79.82 Long term (current) use of aspirin; Z88.5 Allergy status to narcotic agent; Z88.8 Allergy status to other drugs, medicaments and biological substances; Z79.899 Other long term (current) drug therapy
CPT/HCPCS: 36415; 71045; 80048; 83880; 84484; 85025; 85610; 85730; 93005; 99285

== ENCOUNTER 2024-06-01 01:10 | Emergency (ER) | payer OTHER ==
[~2024-06-01] VITALS: Ht 154.9 cm; Wt 70.3 kg
[~2024-06-01 01:10] MED LIST changes: +PANT40EC PO
[2024-06-01 01:12] VITALS: BP 173/83; PULSE 72; RESP 16; TEMP 97.6; O2SAT 100
[2024-06-01 02:38] LABS: BASOPHILS % (AUTO) 0.6 % (0.0-2.0); EOSINOPHILS # (AUTO) 0.1 K/uL (0-0.4); EOSINOPHILS % (AUTO) 1.9 % (0.0-4.0); HEMATOCRIT 38.1 % (36-48); HEMOGLOBIN 12.5 g/dL (12.0-16.0); LYMPHOCYTES # (AUTO) 2.2 K/uL (2.5-16.5); LYMPHOCYTES % (AUTO) 29.6 % (20.5-51.1); MEAN CORPUSCULAR HEMOGLOBIN 28 pg (27-31); MEAN CORPUSCULAR HGB CONC 33 g/dL (33-37); MEAN CORPUSCULAR VOLUME 86.3 fL (80-94); MONOCYTES # (AUTO) 0.6 K/uL (0.8-1.0); NEUTROPHILS # (AUTO) 4.4 K/uL (1.8-7.7); NEUTROPHILS % (AUTO) 59.9 % (42.2-75.2); PLATELET COUNT (AUTO) 248 K/uL (140-450); RED BLOOD CELL COUNT(AUTO) 4.42 MIL/uL (4.20-5.40); RED CELL DISTRIBUTION WIDTH 15.1 % (11.6-13.7); WHITE BLOOD COUNT (AUTO) 7.4 K/uL (4.8-10.8)
[2024-06-01 03:03] LABS: ALANINE AMINOTRANSFERASE 20 U/L (12-78); ALBUMIN 3.3 g/dL (3.4-5.0); ALKALINE PHOSPHATASE 101 U/L (50-136); ANION GAP 10.7 (8-16); ASPARTATE AMINOTRANSFERASE 17 U/L (15-37); CALCIUM 8.4 mg/dL (8.5-10.1); CARBON DIOXIDE 27.8 mmol/L (21-32); CHLORIDE 103 mmol/L (98-107); CREATININE 0.8 mg/dL (0.6-1.3); GFR ARICAN-AMERICAN 98 mL/min (>90); GFR NON ARICAN-AMERICAN 81 mL/min (>90); GLUCOSE 109 mg/dL (74-106); LIPASE 50 U/L (16-77); POTASSIUM 3.5 mmol/L (3.5-5.1); SODIUM SERUM 138 mmol/L (136-145); TOTAL BILIRUBIN 0.2 mg/dL (0.0-1.0); UREA NITROGEN, BLOOD 10 mg/dL (7-18)
[2024-06-01] MEDS ORDERED: ALUMINUM HYD/MAG/SIMETHICONE 30 ML UDC ONE (03:49)
[2024-06-01] MEDS ORDERED: DICYCLOMINE HCL LIQUID 10 MG/5 ML UDC ONE (03:50)
[2024-06-01] MEDS: DICYCLOMINE HCL LIQUID 20 MG, ALUMINUM HYD/MAG/SIMETHICONE 30 ML, LIDOCAINE VISCOUS 2% ... PO ONE (03:56)
[2024-06-01 04:43] VITALS: BP 150/84; PULSE 61; RESP 14; O2SAT 99
[2024-06-01] MEDS ORDERED: [UNRECOGNIZED DRUG - CODE] PO (04:59)
[2024-06-01] MEDS ORDERED: PRON INH (04:59)
[2024-06-01] MEDS ORDERED: PANT40EC PO (04:59)
[2024-06-01] MEDS ORDERED: ALBU0.0912 INH (04:59)
[2024-06-01] MEDS ORDERED: BUDE1AER IH (04:59)
== END 2024-06-01 05:14 | disposition home or self-care (01) ==
LOC: MED 01:10
DX: R07.89 Other chest pain (principal); Z76.0 Encounter for issue of repeat prescription; F41.9 Anxiety disorder, unspecified; R42 Dizziness and giddiness; J45.909 Unspecified asthma, uncomplicated; K21.9 Gastro-esophageal reflux disease without esophagitis; I10 Essential (primary) hypertension; Z79.899 Other long term (current) drug therapy; Z88.0 Allergy status to penicillin; Z88.6 Allergy status to analgesic agent
CPT/HCPCS: 36415; 71045; 80053; 83690; 84484; 85025; 93005; 99285; Q0092

== ENCOUNTER 2024-07-05 08:16 | Emergency (ER) | payer OTHER ==
[~2024-07-05] VITALS: Ht 154.9 cm; Wt 72.6 kg
[2024-07-05 08:17] VITALS: BP 174/96; PULSE 66; RESP 16; TEMP 97.3; O2SAT 100
[2024-07-05] MEDS: FAMOTIDINE 20 MG TAB PO ONE (08:55)
[2024-07-05 09:41] LABS: ANION GAP 10.5 (8-16); CALCIUM 8.9 mg/dL (8.5-10.1); CARBON DIOXIDE 29.3 mmol/L (21-32); CREATININE 0.8 mg/dL (0.6-1.3); POTASSIUM 3.8 mmol/L (3.5-5.1)
[2024-07-05 10:11] LABS: BASOPHILS % (AUTO) 0.7 % (0.0-2.0); EOSINOPHILS # (AUTO) 0.1 K/uL (0-0.4); EOSINOPHILS % (AUTO) 1.6 % (0.0-4.0); HEMATOCRIT 41.7 % (36-48); HEMOGLOBIN 13.9 g/dL (12.0-16.0); LYMPHOCYTES # (AUTO) 1.5 K/uL (2.5-16.5); LYMPHOCYTES % (AUTO) 27.4 % (20.5-51.1); MEAN CORPUSCULAR HEMOGLOBIN 29 pg (27-31); MEAN CORPUSCULAR HGB CONC 33 g/dL (33-37); MEAN CORPUSCULAR VOLUME 86.9 fL (80-94); MONOCYTES # (AUTO) 0.3 K/uL (0.8-1.0); MONOCYTES % (AUTO) 5.2 % (1.7-9.3); NEUTROPHILS # (AUTO) 3.7 K/uL (1.8-7.7); NEUTROPHILS % (AUTO) 65.1 % (42.2-75.2); PLATELET COUNT (AUTO) 287 K/uL (140-450); RED BLOOD CELL COUNT(AUTO) 4.79 MIL/uL (4.20-5.40); RED CELL DISTRIBUTION WIDTH 14.3 % (11.6-13.7); WHITE BLOOD COUNT (AUTO) 5.6 K/uL (4.8-10.8)
[2024-07-05] MEDS ORDERED: PANT40EC PO (10:44)
[2024-07-05] MEDS ORDERED: PRON INH (10:44)
[2024-07-05] MEDS ORDERED: ALBU0.0912 IH (10:44)
[2024-07-05] MEDS ORDERED: LORA10TA19 PO (10:48)
[2024-07-05 10:52] VITALS: BP 161/93; PULSE 67; RESP 16; TEMP 97.3; O2SAT 98
== END 2024-07-05 10:52 | disposition home or self-care (01) ==
LOC: MED 08:16
DX: R07.9 Chest pain, unspecified (principal); K21.9 Gastro-esophageal reflux disease without esophagitis; F41.9 Anxiety disorder, unspecified; J45.909 Unspecified asthma, uncomplicated; F32.9 Major depressive disorder, single episode, unspecified; I10 Essential (primary) hypertension; Z90.49 Acquired absence of other specified parts of digestive tract; Z79.899 Other long term (current) drug therapy; Z88.0 Allergy status to penicillin; Z88.6 Allergy status to analgesic agent; Z88.8 Allergy status to other drugs, medicaments and biological substances
CPT/HCPCS: 36415; 71045; 80048; 84484; 85025; 93005; 99285